=== PATIENT | male | born 1960 | race African-American/Black ===

== ENCOUNTER 2017-05-02 11:55 | Emergency (ER) | payer MEDICARE ==
[~2017-05-02] VITALS: Ht 195.6 cm; Wt 115.7 kg
[2017-05-02 12:40] LABS: Basophils # (auto) 0 uL; Basophils % (auto) 0.3 % (0.0-2.0); CONDITION Y; Eosinophils # (auto) 0.1 uL; Eosinophils % (auto) 1.4 % (0.0-7.0); Hematocrit 42.1 % (41.0-53.0); Lymphocytes # (auto) 2.1 uL; Lymphocytes % (auto) 24.2 % (10.0-50.0); Mean Corpuscular Hemoglobin 28.1 pg (28.0-32.0); Mean Corpuscular Hgb Conc. 33.2 g/dL (32.0-36.0); Mean Corpuscular Volume 84.8 fL (80.0-100.0); Mean Platelet Volume 8.1 fL (7.4-10.4); Monocytes # (auto) 0.7 uL; Monocytes % (auto) 8.2 % (0.0-12.0); Neutrophils # (auto) 5.7 uL; Neutrophils % (auto) 65.9 % (37.0-80.0); Platelet Count (auto) 300 10^3/uL (140-450); Red Cell Distribution Width 15.7 % (11.6-16.0); White Blood Cell 8.6 10^3/uL (4.4-10.8)
[2017-05-02 12:57] LABS: Albumin 4.2 g/dL (3.4-5.0); BUN/Creatinine Ratio 10.7; Bilirubin, Total 0.5 mg/dL (0.2-1.0); Calcium 9.3 mg/dL (8.5-10.1); Total Protein 8.1 g/dL (6.4-8.2)
[2017-05-02 14:00] VITALS: BP 152/95
[2017-05-03 10:07] LABS: PSA Free 1.45 ng/mL
== END 2017-05-02 15:19 | disposition home or self-care (01) ==
LOC: ER 11:55
DX: R30.0 Dysuria (principal); R35.0 Frequency of micturition; M19.90 Unspecified osteoarthritis, unspecified site
CPT/HCPCS: 36415; 80053; 84154; 85025

== ENCOUNTER 2018-07-24 21:20 | Emergency (ER) | payer MEDICARE ==
[~2018-07-24] VITALS: Ht 195.6 cm; Wt 99.8 kg
[2018-07-24 21:50] VITALS: BP 138/90
[2018-07-25] MEDS ORDERED: KETOROLAC TROMETH 60MG/2ML VIAL IM ONE (02:30)
[2018-07-25] MEDS ORDERED: DEXAMETHASONE SOD PHOS 10MG/1ML VIAL INJ IM ONE (02:30)
== END 2018-07-25 04:23 | disposition home or self-care (01) ==
LOC: ER 21:42
DX: M54.42 Lumbago with sciatica, left side (principal); M51.36 Other intervertebral disc degeneration, lumbar region
CPT/HCPCS: 72100; 96372; 99284; J1100; J1885

== ENCOUNTER 2018-10-28 17:05 | Emergency (ER) | payer MEDICARE ==
[~2018-10-28] VITALS: Ht 182.9 cm; Wt 77.1 kg
[2018-10-28] MEDS ORDERED: PROMETHAZINE HCL 25 MG/ML 1ML ONE (17:14)
[2018-10-28] MEDS ORDERED: HYDROmorphone HCL 2 MG/ML VL ONE (17:14)
[2018-10-28] MEDS ORDERED: LIDOCAINE 2% (LOCAL ANESTH.) PF 5ml SDV ONE (17:16)
[2018-10-28] MEDS ORDERED: PROMETHAZINE HCL 25 MG/ML 1ML IV ONE (17:30)
[2018-10-28] MEDS ORDERED: HYDROmorphone HCL 2 MG/ML VL IV ONE ×3 (17:30→19:00)
[2018-10-28] MEDS ORDERED: LIDOCAINE 2%HCL (LOCAL ANESTH.) INJ 10ml MDV IJ ONE (17:30)
[2018-10-28] MEDS ORDERED: CEFTRIAXONE SODIUM 2 GM in D5W 5% 50 ML IV ONE (17:45)
[2018-10-28] MEDS ORDERED: cefTRIAXone 1GM/50ML D5W 100 ML IV ONE (17:52)
[2018-10-28] MEDS ORDERED: TETANUS-DIPTH-ACEL PERTUSSIS 0.5ML SYRG IM ONE (18:00)
[2018-10-28] MEDS ORDERED: IOHEXOL 300 MG/ML 100ML BOTTLE IJ ONE (18:05)
[2018-10-28] MEDS ORDERED: SODIUM CHLORIDE 0.9% 1,000 ML IV ONE (18:30)
[2018-10-28] MEDS ORDERED: SODIUM CHLORIDE 0.9% 3,000 ML IV ONE (18:30)
[2018-10-28 18:46] LABS: Urine Bacteria NONE SEEN /hpf (None Seen); Urine Blood Negative /uL (Negative); Urine Specific Gravity 1.006 (1.001-1.035); Urine WBC <1 /hpf (0 - 3)
[2018-10-28] MEDS ORDERED: MORP15TA (18:52)
[2018-10-28] MEDS ORDERED: SERT-275 (18:52)
[2018-10-28] MEDS ORDERED: TRAZ50TA2 (18:52)
[2018-10-28] MEDS ORDERED: MORP-74 (18:52)
[2018-10-28] MEDS ORDERED: TRAZ100T2 (18:52)
[2018-10-28] MEDS ORDERED: GABA300C10 (18:52)
[2018-10-28] MEDS ORDERED: DICL50TA4 (18:52)
[2018-10-28] MEDS ORDERED: CAR350T (18:52)
[2018-10-28] MEDS ORDERED: AMOX500C2 (18:52)
[2018-10-28] MEDS ORDERED: TEMA30CA (18:52)
[2018-10-28 18:55] LABS: Hematocrit 35.1 % (41.0-53.0); Hemoglobin 10.7 g/dL (13.5-17.5); Mean Corpuscular Hemoglobin 27.9 pg (28.0-32.0); Mean Corpuscular Hgb Conc. 30.5 g/dL (32.0-36.0); Mean Corpuscular Volume 91.6 fL (80.0-100.0); Platelet Count (auto) 746 10^3/uL (140-450); Red Blood Cells 3.83 10^6/uL (4.5-5.90); Red Cell Distribution Width 19.2 % (11.8-14.3)
[2018-10-28 19:05] VITALS: BP 163/102
[2018-10-28 19:08] LABS: Albumin 3.7 g/dL (3.4-5.0); BUN/Creatinine Ratio 7.8; Calcium 8.4 mg/dL (8.5-10.1); Potassium 3.9 mmol/L (3.5-5.1)
[2018-10-28 19:10] LABS: Bilirubin, Total 0.4 mg/dL (0.2-1.0); Total Protein 7.9 g/dL (6.4-8.2)
[2018-10-28 19:35] LABS: White Blood Cell 288.2 10^3/uL (4.4-10.8)
[2018-10-28 19:36] LABS: Basophils % (manual) 0 (0.0-2.0)
[2018-10-28 21:13] LABS: Eosinophils % (manual) 2 (0-7); Lymphocytes % (manual) 2 (10.0-50.0); Metamyelocytes % 8; Monocytes % (manual) 4 (0-12); Myelocytes % 6
[2018-10-28 21:14] LABS: Promyelocytes % 1
[2018-10-28 22:02] LABS: Blast Cells 12
[2018-10-28 22:03] LABS: Band Neutrophils % (manual) 28; Reactive Lymphocytes 9
== END 2018-10-28 23:04 | disposition short-term general hospital (02) ==
LOC: EDBD 17:05 → ER 17:06
DX: S31.103A Unspecified open wound of abdominal wall, right lower quadrant without penetration into peritoneal cavity, initial encounter (principal); M19.90 Unspecified osteoarthritis, unspecified site; Z79.899 Other long term (current) drug therapy; W18.39XA Other fall on same level, initial encounter; Y93.89 Activity, other specified; Y99.8 Other external cause status; Y92.89 Other specified places as the place of occurrence of the external cause
CPT/HCPCS: 36415; 36430; 74177; 80053; 81001; 85007; 85027; 85060; 86850; 86870; 86900; 86901; 86920; 90471; 90715; 93005; 96374; 96375; 99291; J0696; J1170; J2001; J2550; J7030; P9016; Q9967; J7060

== ENCOUNTER 2018-11-23 18:40 | Inpatient (IN) | payer MEDICARE ==
[~2018-11-23] VITALS: Ht 193 cm; Wt 93.6 kg
[~2018-11-23 18:40] MED LIST: AMOX500C2; CAR350T; DICL50TA4; GABA300C10; MORP-74; MORP15TA; SERT-275; TEMA30CA; TRAZ100T2; TRAZ50TA2
[2018-11-23 19:25] LABS: Mean Corpuscular Hgb Conc. 32.3 g/dL (32.0-36.0)
[2018-11-23 19:28] LABS: Hematocrit 25.9 % (41.0-53.0); Hemoglobin 8.4 g/dL (13.5-17.5); Mean Corpuscular Volume 92.9 fL (80.0-100.0); Platelet Count (auto) 653 10^3/uL (140-450); Red Blood Cells 2.79 10^6/uL (4.5-5.90); Red Cell Distribution Width 18.4 % (11.8-14.3)
[2018-11-23 19:37] LABS: Albumin 3.3 g/dL (3.4-5.0); Anion Gap 5 (5-15); Blood Urea Nitrogen 18 mg/dL (7-18); Calcium 8.9 mg/dL (8.5-10.1); Carbon Dioxide 28 mmol/L (21-32); Chloride 107 mmol/L (98-107); Glucose 107 mg/dL (74-106); Potassium 4.5 mmol/L (3.5-5.1); Sodium 140 mmol/L (136-145)
[2018-11-23 19:39] LABS: White Blood Cell 213.2 10^3/uL (4.4-10.8)
[2018-11-23 19:40] LABS: Basophils % (manual) 0 (0.0-2.0)
[2018-11-23 19:42] LABS: Alanine Aminotransferase 19 U/L (16-61); Alkaline Phosphatase 86 U/L (45-117); Aspartate Aminotransferase 22 U/L (15-37); Bilirubin, Total 0.5 mg/dL (0.2-1.0); GFR African American > 60 mL/min; GFR Non-African American > 60 mL/min
[2018-11-23 20:10] LABS: BUN/Creatinine Ratio 14.2
[2018-11-23] MEDS ORDERED: MORPHINE SULFATE 4 MG/ML SYR/VIAL IV ONE (20:30)
[2018-11-23] MEDS ORDERED: SODIUM CHLORIDE 0.9% 1,000 ML IV ONE (20:30)
[2018-11-23] MEDS ORDERED: ONDANSETRON HCL 4 MG/2 ML VIAL IV ONE (20:30)
[2018-11-23 20:54] LABS: Band Neutrophils % (manual) 10; Lymphocytes % (manual) 2 (10.0-50.0); Monocytes % (manual) 2 (0-12)
[2018-11-23 20:55] LABS: Eosinophils % (manual) 2 (0-7); Metamyelocytes % 11; Promyelocytes % 2
[2018-11-23 20:56] LABS: Blast Cells 4; Myelocytes % 12; Reactive Lymphocytes 4
[2018-11-24] MEDS ORDERED: ONDANSETRON HCL 4 MG/2 ML VIAL IV PRN (01:00)
[2018-11-24] MEDS ORDERED: DOCUSATE SOD 100 MG CAP PO PRN (01:00)
--- NOTE | 2018-11-24 02:05 | NUR ---
MS admit from ER ANDRY MORELAND admitted to tele/MS after SBAR received admitted for Leukemia. Patient oriented to SERGIO CARREON RN primary RN, unit, room, bed, and unit policies regarding patient care and visiting hours. Patient weighed by bedscale and encouraged to call if they need something. All questions and concerns addressed, patient verbalized understanding. Note:
--- NOTE | 2018-11-24 02:27 | NUR ---
PATIENT COMPLANING OF 08/09 GENERALIZED PAIN REQUESTING PAIN MEDICATION. [facility] H[facility]PITALIST. AWAITING CALL BACK. Addendum: 11/24/18 at 0241 by SERGIO CARREON RN RN CALLED PHARMACY, WILL NOT ISSUE PATIENT ORDER FOR MORPHINE ER PO AND SOMA PO NEED ONE TIME ORDER FROM PROVIDER Addendum: 11/24/18 at 0243 by SERGIO CARREON RN RN INFORMED PATIENT PLAN OF CARE, AND THAT HE HAS ORDER FOR TYLENOL PATIENT REFUSES TO TAKE TYLENOL STATES "WHAT WILL TYLENOL DO, IT WONT RELIEVE MY PAIN"
[2018-11-24] MEDS ORDERED: MORPHINE SULF 30 mg ER tab PO ONE (03:00)
[2018-11-24 05:00] VITALS: BP 100/58
[2018-11-24] MEDS: PIPERACILLIN-TAZOB 3.375GM 100 ML IV SCH ×3 (05:31→21:19)
[2018-11-24 07:59] VITALS: BP 106/65
[2018-11-24] MEDS ORDERED: IOHEXOL 300 MG/ML 100ML BOTTLE IJ ONE (08:20)
[2018-11-24 08:42] VITALS: BP 106/65
[2018-11-24 09:29] LABS: INR 1.11 (0.9-1.15); Prothrombin Time 11.8 sec (9.27-12.13)
[2018-11-24] MEDS: CARISOPRODOL 350 MG TAB PO SCH ×2 (10:37→21:20)
[2018-11-24] MEDS: FAMOTIDINE 20 MG TAB PO SCH ×2 (10:37→21:21)
[2018-11-24] MEDS: MORPHINE SULF 30 mg ER tab PO SCH ×2 (10:37→21:20)
[2018-11-24] MEDS: HYDROXYUREA 500 MG CAP PO SCH ×2 (10:37→21:20)
[2018-11-24] MEDS ORDERED: fentaNYL CITRATE 100 MCG/2 ML VL IV ONE (11:08)
[2018-11-24] MEDS ORDERED: MIDAZOLAM HCL 1MG/1ML-2 ML VIAL IV ONE (11:09)
[2018-11-24] MEDS ORDERED: MIDAZOLAM HCL 1MG/1ML-2 ML VIAL ONE (11:17)
[2018-11-24] MEDS ORDERED: fentaNYL CITRATE 100 MCG/2 ML VL ONE (11:18)
[2018-11-24 11:39] VITALS: BP 105/65
--- NOTE | 2018-11-24 14:02 | NUR ---
Dr. Garcia paged regarding patient's condition, awaiting to call back.
--- NOTE | 2018-11-24 15:30 | NUR ---
Patient left unit to radiologist.
[2018-11-24 16:24] VITALS: BP 92/52
--- NOTE | 2018-11-24 16:45 | NUR ---
PARACENTESIS PT IN ULTRASOUND ROOM VIA W/C FROM 231 FOR US GUIDED PARACENTESIS BY DR JIMENEZ. PATIENT TOLERATED PROCEDURE VERY WEILL. ABOUT 3-4MLS OF BLOODY FLUID RETURNED AND SENT TO LAB. DRY STERILE GAUZE DRESSING AND CLEAR DRESSING APPLIED. PATIENT RETURNED TO ROOM VIA W/C AND REPORT GIVEN TO TERESO.
--- NOTE | 2018-11-24 17:00 | NUR ---
Patient back to the floor, no respiratory distress.
--- NOTE | 2018-11-24 18:00 | NUR ---
Colostomy bag changed.
[2018-11-24] MEDS: TEMAZEPAM 15 MG CAP PO PRN (21:19)
[2018-11-24 22:00] VITALS: BP 98/62
[2018-11-25 05:00] VITALS: BP 110/65
[2018-11-25] MEDS: PIPERACILLIN-TAZOB 3.375GM 100 ML IV SCH ×3 (05:03→22:58)
[2018-11-25 05:13] LABS: Hemoglobin 8.8 g/dL (13.5-17.5)
[2018-11-25 05:18] LABS: Hematocrit 27.9 % (41.0-53.0); Mean Corpuscular Hemoglobin 28.9 pg (28.0-32.0); Mean Corpuscular Hgb Conc. 31.6 g/dL (32.0-36.0); Mean Corpuscular Volume 91.4 fL (80.0-100.0); Platelet Count (auto) 546 10^3/uL (140-450); Red Blood Cells 3.06 10^6/uL (4.5-5.90)
[2018-11-25 05:27] LABS: Albumin 2.7 g/dL (3.4-5.0); BUN/Creatinine Ratio 16.8; Calcium 8.1 mg/dL (8.5-10.1); Potassium 4.3 mmol/L (3.5-5.1)
[2018-11-25 05:30] LABS: Bilirubin, Total 0.5 mg/dL (0.2-1.0); Total Protein 6.8 g/dL (6.4-8.2)
[2018-11-25 05:34] LABS: White Blood Cell 137.1 10^3/uL (4.4-10.8)
--- NOTE | 2018-11-25 07:30 | NUR ---
Opening Shift Note Assumed care of patient, awake and alert. No S/S of distress/SOB or pain. PT SITTING ON THE SIDE OF THE BED, EATING BREAKFAST. PT'S WOUND ON RIGHT LOWER QUADRANT IS ROUND AND HAVE VERY LITTLE DRAINAGE AT THIS TIME. A COLOSTOMY BAG IS ATTACHED ON THE WOUND SITE FOR DRAINAGE COLLECTION. PT Instructed on POC and to call for assist PRN, will continue to monitor for changes Q1hr and PRN.
[2018-11-25 08:00] VITALS: BP 112/67
--- NOTE | 2018-11-25 08:30 | NUR ---
CLERGY PAGED FOR PT, PER PT'S REQUEST.
[2018-11-25] MEDS: CARISOPRODOL 350 MG TAB PO SCH ×2 (10:18→22:57)
[2018-11-25] MEDS: FAMOTIDINE 20 MG TAB PO SCH ×2 (10:18→22:57)
[2018-11-25] MEDS: HYDROXYUREA 500 MG CAP PO SCH ×2 (10:19→22:57)
--- NOTE | 2018-11-25 10:20 | NUR ---
DR REY PAGED RE: SURGICAL CONSULT. WAITING FOR CALL BACK.
[2018-11-25] MEDS: MORPHINE SULF 30 mg ER tab PO SCH ×2 (10:22→22:57)
--- NOTE | 2018-11-25 11:50 | NUR ---
SPOKE TO DR REY. PER , WE HAVE TO WAIT FOR LAB RESULT OF THE ASPIRATED FLUID.
[2018-11-25 11:56] LABS: Band Neutrophils % (manual) 23; Basophils % (manual) 0 (0.0-2.0); Blast Cells 3; Eosinophils % (manual) 2 (0-7); Lymphocytes % (manual) 4 (10.0-50.0); Metamyelocytes % 16; Monocytes % (manual) 4 (0-12); Myelocytes % 17; Promyelocytes % 0; Reactive Lymphocytes 0
[2018-11-25 12:49] VITALS: BP_SYST 122; BP_SYST 99; BP_DIAS 62; BP_DIAS 73
--- NOTE | 2018-11-25 15:10 | NUR ---
RESEARCH SUPPORT SPECIALIST AT BEDSIDE.
[2018-11-25] MEDS: MORPHINE SULFATE 4 MG/ML SYR/VIAL IV PRN ×2 (15:33→22:02)
--- NOTE | 2018-11-25 16:00 | NUR ---
AUTHORIZATION TO OBTAIN MEDICAL RECORDS FROM [facility] SIGNED BY PATIENT AND FAXED TO [facility].
[2018-11-25 16:40] VITALS: BP 104/62
--- NOTE | 2018-11-25 17:33 | NUR ---
RECEIVED PT'S MEDICAL RECORD FROM [facility]. RECORD FILED IN PATIENT'S CHART.
--- NOTE | 2018-11-25 18:49 | NUR ---
CLOSING NOTES PT IN BED, WATCHING TV. VERBALIZED COMFORT. DENIES PAIN AT THIS TIME. NO DISTRESS NOTED. PT STATED FEELING MUCH BETTER AFTER TALKING TO THE [employer] OPERATOR TODAY.
--- NOTE | 2018-11-25 19:18 | NUR ---
Opening Shift Note Assumed care of patient, awake and alert x 4. No S/S of distress/SOB. Bed is in lowest position and locked. Call light within reach. Board updated. Instructed on POC and to call for assist PRN, will continue to monitor for changes Q1hr and PRN.
[2018-11-25] MEDS: ACETAMINOPHEN 325 MG TAB PO PRN (20:21)
[2018-11-25 22:00] VITALS: BP 112/68
[2018-11-25 22:37] LABS: Urine Bacteria FEW /hpf (None Seen); Urine Blood Negative /uL (Negative); Urine Specific Gravity 1.018 (1.001-1.035); Urine WBC 3 /hpf (0 - 3)
[2018-11-25] MEDS: TEMAZEPAM 15 MG CAP PO PRN (22:57)
[2018-11-26] MEDS: MORPHINE SULFATE 4 MG/ML SYR/VIAL IV PRN ×4 (03:37→21:34)
[2018-11-26 05:00] VITALS: BP 105/66
[2018-11-26] MEDS: PIPERACILLIN-TAZOB 3.375GM 100 ML IV SCH ×3 (05:05→22:40)
--- NOTE | 2018-11-26 07:35 | NUR ---
Patient in bed, awake, oriented x4. No acute distress noted.
--- NOTE | 2018-11-26 08:50 | NUR ---
Patient asked for Morphine shot. Explained to patient Morphine Sulf IVP not due at this time.
[2018-11-26] MEDS: HYDROXYUREA 500 MG CAP PO SCH ×3 (09:48→22:41)
[2018-11-26] MEDS: CARISOPRODOL 350 MG TAB PO SCH ×2 (09:48→22:40)
[2018-11-26] MEDS: FAMOTIDINE 20 MG TAB PO SCH ×2 (09:48→22:40)
--- NOTE | 2018-11-26 09:48 | NUR ---
Patient stated his pain level at 9/10 at this time. Morphine Sulf IVP given as ordered for pain.
[2018-11-26] MEDS: MORPHINE SULF 30 mg ER tab PO SCH ×2 (10:50→22:40)
--- NOTE | 2018-11-26 10:50 | NUR ---
Patient stated his pain level at 7/10 at this time. Oramorph pill as ordered for pain given.
--- NOTE | 2018-11-26 10:55 | NUR ---
Craig Crook at bedside.
--- NOTE | 2018-11-26 11:42 | NUR ---
Dr. Ricketts at bedside for follow up Oncology Consult.
--- NOTE | 2018-11-26 11:47 | NUR ---
Dr. Ricketts ordered Allopurinol 100 mg PO daily.
--- NOTE | 2018-11-26 14:15 | NUR ---
Patient asked for Morphine shot for pain. Explained to patient Morphine Sulf IVP not due at this time.
--- NOTE | 2018-11-26 15:47 | NUR ---
Patient stated his pain level at 8/10 at this time. Morphine Sulf IVP given as ordered.
--- NOTE | 2018-11-26 15:50 | NUR ---
About 850 ml of clear, romeo urine emptied from the urinal.
[2018-11-26] MEDS: ACETAMINOPHEN 325 MG TAB PO PRN (18:11)
--- NOTE | 2018-11-26 18:11 | NUR ---
Patient stated he has headache. Tylenol PO given for pain as ordered.
--- NOTE | 2018-11-26 20:46 | NUR ---
Patient is very concerned regarding his pain management when he goes home and wants MD to prescribe pain management prescriptions for him before going home. Will endorse to day shift RN.
[2018-11-26 21:30] VITALS: BP 114/70
--- NOTE | 2018-11-26 21:48 | NUR ---
Replaced Colostomy over right lower abdominal puncture wound. Patient tolerated well.
[2018-11-26] MEDS: TEMAZEPAM 15 MG CAP PO PRN (22:40)
[2018-11-27] MEDS: MORPHINE SULFATE 4 MG/ML SYR/VIAL IV PRN (03:46)
[2018-11-27 05:03] VITALS: BP 113/66
[2018-11-27] MEDS: PIPERACILLIN-TAZOB 3.375GM 100 ML IV SCH (06:27)
[2018-11-27] MEDS: HYDROXYUREA 500 MG CAP PO SCH (06:27)
[2018-11-27] MEDS: ACETAMINOPHEN 325 MG TAB PO PRN (06:41)
--- NOTE | 2018-11-27 06:59 | NUR ---
Notified of critical elevated WBC count of 108.7 by Winsome Wu. Patient has leukemia and has had an elevated WBC count since admission, trending down. Hospitalist and Dr. Ricketts to be notified during rounds. Will endorse to day shift RN.
[2018-11-27 07:11] LABS: Calcium 8.6 mg/dL (8.5-10.1); Potassium 4.3 mmol/L (3.5-5.1)
[2018-11-27 07:13] LABS: BUN/Creatinine Ratio 16.7
[2018-11-27 07:15] LABS: Bilirubin, Total 0.5 mg/dL (0.2-1.0); Total Protein 7.1 g/dL (6.4-8.2)
--- NOTE | 2018-11-27 07:40 | NUR ---
Opening patient in bed, asleep, bed in lowest position, call light within reach. No distress noted at this time. Will f/u with morning assessment.
[2018-11-27 09:00] VITALS: BP 115/73
[2018-11-27] MEDS ORDERED: ALLOPURINOL 100 MG TAB PO SCH (10:00)
[2018-11-27] MEDS: FAMOTIDINE 20 MG TAB PO SCH (10:25)
[2018-11-27] MEDS: CARISOPRODOL 350 MG TAB PO SCH (10:26)
[2018-11-27] MEDS: MORPHINE SULF 30 mg ER tab PO SCH (10:26)
--- NOTE | 2018-11-27 10:43 | NUR ---
MD LOUISA RODRÍGUEZ ROUNDING, TALKS ABOUT DISCHARGE, CONFIRMED WITH MD REY FOR CLEARANCE. WILL ADD PRESCRIPTIONS TO GO HOME WITH AND PATIENT IS TO F/U WITH SURGEON AT [facility] WITHIN 1 WEEK
[2018-11-27 12:18] VITALS: BP 115/73
[2018-11-27 12:30] VITALS: BP 121/76
--- NOTE | 2018-11-27 13:15 | NUR ---
Closing Discharge instructions given as ordered. Encourage to follow up with PMD as instructed. All questions and concerns addressed. Patient verbalized understanding. Medication reconciliation form completed and copy given to patient. IV removed with catheter intact, pressure dressing applied. Patient taken to vehicle with all personal belongings, accompanied by staff and family member. No distress noted at time of departure.
== END 2018-11-27 13:25 | disposition home or self-care (01) | DRG 371 ==
LOC: EDUNIT# 18:40 → EDBD 18:40 → ER 18:44 → EAST 11-24 01:25
PROVIDERS: ADMIT Nurse Practitioner; ATTEND Family Medicine
PROC: 0W9H3ZZ Drainage of Retroperitoneum, Percutaneous Approach (ICD-10-PCS; principal; 2018-11-25)
DX: K68.19 Other retroperitoneal abscess (principal); K66.1 Hemoperitoneum; K85.90 Acute pancreatitis without necrosis or infection, unspecified; R18.8 Other ascites; C92.10 Chronic myeloid leukemia, BCR/ABL-positive, not having achieved remission; R16.1 Splenomegaly, not elsewhere classified; M19.90 Unspecified osteoarthritis, unspecified site; E86.0 Dehydration; F32.9 Major depressive disorder, single episode, unspecified; I10 Essential (primary) hypertension; Z91.19 Patient's noncompliance with other medical treatment and regimen; Z93.3 Colostomy status; Y93.89 Activity, other specified; Y92.89 Other specified places as the place of occurrence of the external cause
CPT/HCPCS: 10022; 36415; 71260; 74176; 76705; 76942; 80053; 81001; 83605; 83690; 84484; 85007; 85025; 85027; 85610; 87040; 87070; 87075; 87081; 87205; 93005; 96374; 96375; G0378; J2250; J2405; J2543

== ENCOUNTER 2019-12-24 09:15 | Inpatient (IN) | payer MEDICARE ==
[2019-12-24] VITALS (9 sets, daily range): BP systolic 102–123; BP diastolic 65–73
[~2019-12-24] VITALS: Ht 195.6 cm; Wt 92.5 kg
[~2019-12-24 09:15] MED LIST changes: +ALL300T PO; -AMOX500C2; -CAR350T; -DICL50TA4; +FAM20T PO; +FURO1TAB31 PO; +HYD500C PO; -MORP-74; +MORP30TA5; -SERT-275; +SEVE800T PO; +SODI10PA PO; -TEMA30CA; -TRAZ100T2; -TRAZ50TA2; +VENL100T PO
[2019-12-24] MEDS ORDERED: SODIUM CHLORIDE 0.9% 1,000 ML IV ONE (11:27)
[2019-12-24 13:00] LABS: Hematocrit 17.8 % (41.0-53.0); Mean Corpuscular Hemoglobin 28.9 pg (28.0-32.0); Mean Corpuscular Hgb Conc. 33.1 g/dL (32.0-36.0); Mean Corpuscular Volume 87.4 fL (80.0-100.0); Platelet Count (auto) 154 10^3/uL (140-450); Red Blood Cells 2.03 10^6/uL (4.5-5.90); Red Cell Distribution Width 18.7 % (11.8-14.3); White Blood Cell 3.1 10^3/uL (4.4-10.8)
[2019-12-24 13:03] LABS: Hemoglobin 5.9 g/dL (13.5-17.5)
[2019-12-24 13:05] LABS: Band Neutrophils % (manual) 0; Basophils % (manual) 0 (0.0-2.0); Blast Cells 0; Metamyelocytes % 0; Myelocytes % 0; Promyelocytes % 0; Reactive Lymphocytes 0
[2019-12-24 13:08] LABS: Albumin 2.9 g/dL (3.4-5.0); Calcium 8.5 mg/dL (8.5-10.1); Potassium 4.9 mmol/L (3.5-5.1)
[2019-12-24 13:11] LABS: Bilirubin, Total 0.5 mg/dL (0.2-1.0); Total Protein 6.4 g/dL (6.4-8.2)
[2019-12-24] MEDS ORDERED: MORPHINE SULFATE 4 MG/ML SYR/VIAL IV PRN (14:00)
[2019-12-24] MEDS ORDERED: NITROGLYCERIN 0.4 MG SL TAB SL PRN (14:00)
[2019-12-24] MEDS ORDERED: MORPHINE SULF INJ 2 MG/ML SYRINGE 1ML IV PRN (14:00)
[2019-12-24] MEDS ORDERED: ONDANSETRON HCL 4 MG/2 ML VIAL IV PRN (14:00)
[2019-12-24 14:18] LABS: Eosinophils % (manual) 3 (0-7); Lymphocytes % (manual) 30 (10.0-50.0); Monocytes % (manual) 5 (0-12)
[2019-12-24 14:18] LABS: INR 1.06 (0.9-1.15); Partial Thromboplastin Time 23.6 sec (23.64-32.05)
[2019-12-24] MEDS: VENLAFAXINE HCL 25MG TABLET PO SCH (21:55)
[2019-12-24] MEDS ORDERED: PANTOPRAZOLE 40 MG TAB PO SCH (22:00)
[2019-12-24] MEDS: hydroxyUREA 500 MG CAP PO SCH (22:41)
[2019-12-24] MEDS: SEVELAMER 800 MG TAB PO SCH (22:41)
[2019-12-25 02:00] VITALS: BP 122/77
[2019-12-25 03:00] VITALS: BP 118/78
[2019-12-25 05:00] VITALS: BP 111/72
[2019-12-25] MEDS: SEVELAMER 800 MG TAB PO SCH ×3 (06:00→22:57)
[2019-12-25 07:02] LABS: Hemoglobin 8.3 g/dL (13.5-17.5)
[2019-12-25 07:04] LABS: Hematocrit 25.3 % (41.0-53.0); Mean Corpuscular Hgb Conc. 32.9 g/dL (32.0-36.0); Mean Corpuscular Volume 88.3 fL (80.0-100.0); Platelet Count (auto) 146 10^3/uL (140-450); Red Blood Cells 2.87 10^6/uL (4.5-5.90); Red Cell Distribution Width 17.9 % (11.8-14.3); White Blood Cell 3.3 10^3/uL (4.4-10.8)
[2019-12-25 07:18] LABS: Albumin 2.9 g/dL (3.4-5.0); Blast Cells 0; Calcium 8.9 mg/dL (8.5-10.1); Metamyelocytes % 0; Myelocytes % 0; Potassium 5.3 mmol/L (3.5-5.1); Promyelocytes % 0; Reactive Lymphocytes 0
[2019-12-25 07:22] LABS: BUN/Creatinine Ratio 30.1; Bilirubin, Total 0.9 mg/dL (0.2-1.0); Total Protein 6.7 g/dL (6.4-8.2)
[2019-12-25] MEDS ORDERED: SODIUM CHLORIDE LOCK 10 ML ONE (08:37)
[2019-12-25] MEDS ORDERED: LIDOCAINE VISCOUS 2% 15ML UD ONE (08:37)
[2019-12-25] MEDS ORDERED: diphenhdrAMINE HCL 50 MG/1 ML VL ONE (08:38)
[2019-12-25 09:00] VITALS: BP 103/64
[2019-12-25] MEDS ORDERED: FAMOTIDINE 20 MG TAB PO SCH (10:00)
[2019-12-25] MEDS: FUROSEMIDE 40 MG TAB PO SCH (10:00)
[2019-12-25] MEDS: GABAPENTIN 300 MG CAP PO SCH (10:00)
[2019-12-25] MEDS: ALLOPURINOL 100 MG TAB PO SCH (10:00)
[2019-12-25] MEDS: VENLAFAXINE HCL 25MG TABLET PO SCH ×2 (10:00→22:50)
[2019-12-25] MEDS ORDERED: hydroxyUREA 500 MG CAP PO SCH (11:00)
[2019-12-25 12:26] LABS: Band Neutrophils % (manual) 1; Basophils % (manual) 2 (0.0-2.0); Eosinophils % (manual) 3 (0-7); Lymphocytes % (manual) 24 (10.0-50.0); Monocytes % (manual) 2 (0-12)
[2019-12-25] MEDS: MIDAZOLAM HCL 5 MG/ML-1ML VIAL ONE ×2 (13:26→13:31)
[2019-12-25] MEDS: fentaNYL CITRATE 100 MCG/2 ML VL ONE ×2 (13:26→13:31)
[2019-12-25] MEDS: SODIUM ZIRCONIUM CYCL 10 GM PAK PO SCH (14:50)
[2019-12-25 17:00] VITALS: BP 103/61
[2019-12-25 22:00] VITALS: BP 116/66
[2019-12-26 05:00] VITALS: BP 109/60
[2019-12-26 06:19] LABS: Mean Corpuscular Hemoglobin 29.1 pg (28.0-32.0)
[2019-12-26 06:21] LABS: Hematocrit 23.7 % (41.0-53.0); Mean Corpuscular Hgb Conc. 33.7 g/dL (32.0-36.0); Mean Corpuscular Volume 86.2 fL (80.0-100.0); Platelet Count (auto) 157 10^3/uL (140-450); Red Blood Cells 2.75 10^6/uL (4.5-5.90); Red Cell Distribution Width 17.3 % (11.8-14.3); White Blood Cell 4.6 10^3/uL (4.4-10.8)
[2019-12-26 06:24] LABS: Band Neutrophils % (manual) 0; Basophils % (manual) 0 (0.0-2.0); Blast Cells 0; Eosinophils % (manual) 0 (0-7); Metamyelocytes % 0; Myelocytes % 0; Promyelocytes % 0; Reactive Lymphocytes 0
[2019-12-26 06:38] LABS: Calcium 8.7 mg/dL (8.5-10.1); Potassium 4.6 mmol/L (3.5-5.1)
[2019-12-26 06:40] LABS: BUN/Creatinine Ratio 24.8; Bilirubin, Total 0.7 mg/dL (0.2-1.0); Total Protein 6.9 g/dL (6.4-8.2)
[2019-12-26] MEDS: SEVELAMER 800 MG TAB PO SCH ×3 (06:43→21:21)
[2019-12-26 06:44] LABS: Ferritin 778.3 ng/mL (10-322)
[2019-12-26 06:47] LABS: % Iron Saturation 13.4 % (20-55)
[2019-12-26 06:56] LABS: Folate (Folic Acid) 10.49 ng/mL (5.38-24)
[2019-12-26 08:00] VITALS: BP 100/62
[2019-12-26 08:24] LABS: Lymphocytes % (manual) 13 (10.0-50.0); Monocytes % (manual) 5 (0-12)
[2019-12-26 08:41] VITALS: BP 100/62
[2019-12-26] MEDS ORDERED: hydroxyUREA 500 MG CAP PO SCH (10:00)
[2019-12-26] MEDS: VENLAFAXINE HCL 25MG TABLET PO SCH ×2 (10:07→21:21)
[2019-12-26] MEDS: ALLOPURINOL 100 MG TAB PO SCH (10:08)
[2019-12-26] MEDS: GABAPENTIN 300 MG CAP PO SCH (10:08)
[2019-12-26] MEDS: FUROSEMIDE 40 MG TAB PO SCH (10:08)
[2019-12-26] MEDS: SODIUM ZIRCONIUM CYCL 10 GM PAK PO SCH (10:56)
[2019-12-26 12:54] VITALS: BP 98/64
[2019-12-26 17:01] VITALS: BP 106/61
[2019-12-26] MEDS ORDERED: TEMAZEPAM 15 MG CAP PO PRN (18:00)
[2019-12-26] MEDS ORDERED: ACETAMINOPHEN 500 MG TAB PO PRN (18:00)
[2019-12-27] VITALS (7 sets, daily range): BP systolic 96–114; BP diastolic 54–63
[2019-12-27] MEDS: SEVELAMER 800 MG TAB PO SCH ×2 (06:08→14:27)
[2019-12-27 06:28] LABS: Hematocrit 21.9 % (41.0-53.0); Hemoglobin 7.3 g/dL (13.5-17.5); Mean Corpuscular Hemoglobin 29.2 pg (28.0-32.0); Mean Corpuscular Hgb Conc. 33.5 g/dL (32.0-36.0); Mean Corpuscular Volume 87.1 fL (80.0-100.0); Platelet Count (auto) 136 10^3/uL (140-450); Red Blood Cells 2.52 10^6/uL (4.5-5.90); Red Cell Distribution Width 17.7 % (11.8-14.3)
[2019-12-27 06:42] LABS: Band Neutrophils % (manual) 0; Basophils % (manual) 0 (0.0-2.0); Metamyelocytes % 0; Myelocytes % 0; Promyelocytes % 0
[2019-12-27 06:43] LABS: Blast Cells 0; Reactive Lymphocytes 0
[2019-12-27 06:50] LABS: Albumin 2.9 g/dL (3.4-5.0); Calcium 8.5 mg/dL (8.5-10.1); Potassium 4.2 mmol/L (3.5-5.1)
[2019-12-27 06:55] LABS: BUN/Creatinine Ratio 25.7; Bilirubin, Total 0.5 mg/dL (0.2-1.0); Total Protein 6.6 g/dL (6.4-8.2)
[2019-12-27 07:34] LABS: Eosinophils % (manual) 1 (0-7); Lymphocytes % (manual) 15 (10.0-50.0); Monocytes % (manual) 3 (0-12)
[2019-12-27] MEDS: FUROSEMIDE 40 MG TAB PO SCH (10:00)
[2019-12-27] MEDS: SODIUM ZIRCONIUM CYCL 10 GM PAK PO SCH (10:00)
[2019-12-27] MEDS: VENLAFAXINE HCL 25MG TABLET PO SCH (10:12)
[2019-12-27] MEDS: ALLOPURINOL 100 MG TAB PO SCH (10:13)
[2019-12-27] MEDS: GABAPENTIN 300 MG CAP PO SCH (10:13)
== END 2019-12-27 21:17 | DRG 378 ==
LOC: EDBD 09:15 → ER 09:15 → TELE 09:16 → TELE-CENTR 15:43
PROVIDERS: ADMIT Internal Medicine; ATTEND Internal Medicine
PROC: 30233N1 Transfusion of Nonautologous Red Blood Cells into Peripheral Vein, Percutaneous Approach (ICD-10-PCS; principal; 2019-12-24)
PROC: 0DJ08ZZ Inspection of Upper Intestinal Tract, Via Natural or Artificial Opening Endoscopic (ICD-10-PCS; 2019-12-25)
DX: K92.1 Melena (principal); D62 Acute posthemorrhagic anemia; C92.11 Chronic myeloid leukemia, BCR/ABL-positive, in remission; K44.9 Diaphragmatic hernia without obstruction or gangrene; K21.9 Gastro-esophageal reflux disease without esophagitis; I10 Essential (primary) hypertension; M19.90 Unspecified osteoarthritis, unspecified site; E04.1 Nontoxic single thyroid nodule; E79.0 Hyperuricemia without signs of inflammatory arthritis and tophaceous disease; F32.9 Major depressive disorder, single episode, unspecified; Z79.899 Other long term (current) drug therapy; Z91.19 Patient's noncompliance with other medical treatment and regimen
CPT/HCPCS: 36415; 43235; 71045; 80053; 82607; 82728; 82746; 83010; 83540; 83550; 83615; 84484; 84550; 85007; 85027; 85610; 85730; 86850; 86880; 86900; 86901; 86920; 87081; 96360; 96361; G0378; J2250

== ENCOUNTER 2020-01-01 16:48 | Inpatient (IN) | payer MEDICARE ==
[~2020-01-01] VITALS: Ht 195.6 cm; Wt 84.4 kg
[2020-01-01 18:02] LABS: Hematocrit 22.1 % (41.0-53.0); Hemoglobin 7.1 g/dL (13.5-17.5); Mean Corpuscular Hemoglobin 29.3 pg (28.0-32.0); Mean Corpuscular Hgb Conc. 32.3 g/dL (32.0-36.0); Mean Corpuscular Volume 90.7 fL (80.0-100.0); Platelet Count (auto) 178 10^3/uL (140-450); Red Blood Cells 2.44 10^6/uL (4.5-5.90); Red Cell Distribution Width 18.8 % (11.8-14.3); White Blood Cell 4.3 10^3/uL (4.4-10.8)
[2020-01-01 18:04] LABS: Band Neutrophils % (manual) 0; Basophils % (manual) 0 (0.0-2.0); Blast Cells 0; Metamyelocytes % 0; Reactive Lymphocytes 0
[2020-01-01] MEDS ORDERED: SODIUM CHLORIDE 0.9% 1,000 ML IV ONE (18:15)
[2020-01-01 18:22] LABS: Albumin 2.9 g/dL (3.4-5.0); Anion Gap 4 (5-15); Blood Urea Nitrogen 34 mg/dL (7-18); Calcium 8.2 mg/dL (8.5-10.1); Carbon Dioxide 28 mmol/L (21-32); Chloride 106 mmol/L (98-107); Glucose 77 mg/dL (74-106); Potassium 4.3 mmol/L (3.5-5.1); Sodium 138 mmol/L (136-145)
[2020-01-01 18:24] LABS: Alanine Aminotransferase 18 U/L (16-61); Aspartate Aminotransferase 12 U/L (15-37); BUN/Creatinine Ratio 23.8; GFR African American 65 mL/min; GFR Non-African American 53 mL/min
[2020-01-01 18:27] LABS: Alkaline Phosphatase 136 U/L (45-117); Bilirubin, Total 0.7 mg/dL (0.2-1.0); Total Protein 6.6 g/dL (6.4-8.2)
[2020-01-01 18:54] LABS: Eosinophils % (manual) 6 (0-7); Lymphocytes % (manual) 28 (10.0-50.0); Monocytes % (manual) 11 (0-12); Myelocytes % 2; Promyelocytes % 1
[2020-01-01 19:24] LABS: INR 1.09 (0.9-1.15); Partial Thromboplastin Time 26.3 sec (23.64-32.05)
[2020-01-01] MEDS ORDERED: hydrALAZINE HCL 20 MG/ML VL IV PRN (22:15)
[2020-01-01] MEDS ORDERED: NITROGLYCERIN 0.4 MG SL TAB SL PRN (22:15)
[2020-01-01] MEDS ORDERED: MORPHINE SULF INJ 2 MG/ML SYRINGE 1ML IV PRN ×2 (22:15)
[2020-01-01] MEDS ORDERED: ONDANSETRON HCL 4 MG/2 ML VIAL IV PRN (22:15)
[2020-01-01 23:03] VITALS: BP 108/61
[2020-01-01 23:18] VITALS: BP 104/56
[2020-01-01 23:45] VITALS: BP 111/61
--- NOTE | 2020-01-01 23:59 | NUR ---
Opening Shift Note Assumed care of patient. Pt awake, alert, and orientated x 4. No S/S of distress/SOB or pain. Pt is currently receiving a transfusion of PRBC. Bed is in lowest position with side rails up x 4. Bed brakes are locked and call light is with in reach. HOB is 30 degrees. Instructed on POC and to call for assist PRN, will continue to monitor for changes Q1hr and PRN.
[2020-01-02] VITALS (8 sets, daily range): BP systolic 99–112; BP diastolic 59–69
--- NOTE | 2020-01-02 01:11 | NUR ---
transfusion Transfusion complete. No s/s of distress/SOB nor pain. Vital signs as follows Temp: 98.1, BP: 107/66, Spo2: 100% on RA, RR:18, HR 72.
--- NOTE | 2020-01-02 01:21 | NUR ---
Telemetry admit from ER ANDRY MORELAND admitted to Telemetry unit after SBAR received. Patient oriented to YAHAIRA MALONE RN primary RN, unit, room, bed, and unit policies regarding patient care and visiting hours. Patient now on continuous telemetry monitoring, tele box # 61 and telemetry reading on arrival to unit is SR at 69. Pt was weighed by bedscale and encouraged to call if they need something. All questions and concerns addressed, patient verbalized understanding. Addendum: 01/02/20 at 0128 by YAHAIRA MALONE RN RN time of arrival and note [id number]
--- NOTE | 2020-01-02 01:21 | NUR ---
Med rec pt unable to recall medication taken, unable to obtain med rec at this moment.
[2020-01-02 02:27] LABS: Hematocrit 25.9 % (41.0-53.0); Hemoglobin 8.4 g/dL (13.5-17.5)
[2020-01-02 06:46] LABS: Hematocrit 28.1 % (41.0-53.0); Hemoglobin 9.2 g/dL (13.5-17.5); Mean Corpuscular Hemoglobin 29.1 pg (28.0-32.0); Mean Corpuscular Hgb Conc. 32.6 g/dL (32.0-36.0); Mean Corpuscular Volume 89.3 fL (80.0-100.0); Platelet Count (auto) 208 10^3/uL (140-450); Red Blood Cells 3.14 10^6/uL (4.5-5.90); Red Cell Distribution Width 19.1 % (11.8-14.3); White Blood Cell 5.8 10^3/uL (4.4-10.8)
[2020-01-02 06:55] LABS: Potassium 4.9 mmol/L (3.5-5.1)
[2020-01-02 07:04] LABS: Band Neutrophils % (manual) 0; Basophils % (manual) 0 (0.0-2.0); Blast Cells 0; Metamyelocytes % 0; Myelocytes % 0; Promyelocytes % 0; Reactive Lymphocytes 0
[2020-01-02 07:05] LABS: Albumin 3.3 g/dL (3.4-5.0); BUN/Creatinine Ratio 22.4; Bilirubin, Total 1.1 mg/dL (0.2-1.0); Calcium 8.4 mg/dL (8.5-10.1); Total Protein 6.7 g/dL (6.4-8.2)
--- NOTE | 2020-01-02 07:15 | NUR ---
Opening Shift Note Assumed care of patient, awake and alert. No S/S of distress/SOB or pain. Instructed on POC and to call for assist PRN, will continue to monitor for changes Q1hr and PRN. Bed is set in lowest locked position with side rails up x 2 for safety and call light is within reach.
[2020-01-02 08:18] LABS: Eosinophils % (manual) 2 (0-7); Lymphocytes % (manual) 11 (10.0-50.0); Monocytes % (manual) 14 (0-12)
--- NOTE | 2020-01-02 15:10 | NUR ---
assessment Patient is a 59 year old male who is alert and oriented. Prior to admission patient was at [facility]. Per patient he will return to [facility] to finish out his rehab before returning home. Patients PCP Dr Kauffman. Patient is now discharged back to . [facility] [id number] will satisfy order. I informed patient he has a right to speak to a mental health social worker regarding all care. I informed patient he has a right to participate in any and all discharge planning. Patient does not have a POA and advanced directive. I have offered patient information on POA and advanced directives. I informed the patient the advantages and benefits of having an Advanced Directive. Patient verbalized understanding and agreed to discharge plan. Addendum: 01/02/20 at 1511 by Torrie GIRON Amended: Links added.
--- NOTE | 2020-01-02 15:38 | NUR ---
ANDRY MORELAND states they want to leave the floor Against Medical Advice (AMA) to go outside. Patient encouraged to stay on floor. Patient advised of the risks and benefits of leaving AMA. Patient verbalized understanding and signed required AMA form.
--- NOTE | 2020-01-02 16:38 | NUR ---
D/C Planning Per SS consult for patient to return to [facility]. Faxed orders to [facility]. Per Paty with [facility] Ph:) patient will be going to room [address] Johnson. Transportation was arranged with [employer] [phone], and scheduled last picker time is for 20:00. Nurse Olivia was advised of dc plan.
--- NOTE | 2020-01-02 19:15 | NUR ---
opening note pt a&ox4. resp are even and nonlabored on room air. pt in semi fowlers position watching tv. bed in low locked position. call light is within reach. pt to be discharged this evening.
--- NOTE | 2020-01-02 19:30 | NUR ---
Care endorsed to NOC RN.
--- NOTE | 2020-01-02 20:40 | NUR ---
Lynn Martino arrived for transport to [facility]
--- NOTE | 2020-01-02 20:44 | NUR ---
tele box removed from pt. IV access d/c
--- NOTE | 2020-01-02 20:45 | NUR ---
pt en route to [facility]
[2020-01-03] MEDS ORDERED: hydroxyUREA 500 MG CAP PO SCH (10:00)
== END 2020-01-02 20:45 | DRG 842 ==
LOC: ER 16:48 → EDBD 16:48 → TELE 16:49 → TELE-WESTW 23:37
PROVIDERS: ADMIT Internal Medicine; ATTEND Internal Medicine
PROC: 30233N1 Transfusion of Nonautologous Red Blood Cells into Peripheral Vein, Percutaneous Approach (ICD-10-PCS; principal; 2020-01-01)
DX: C92.10 Chronic myeloid leukemia, BCR/ABL-positive, not having achieved remission (principal); I95.9 Hypotension, unspecified; I10 Essential (primary) hypertension; J45.909 Unspecified asthma, uncomplicated; K21.9 Gastro-esophageal reflux disease without esophagitis; M19.90 Unspecified osteoarthritis, unspecified site; D63.0 Anemia in neoplastic disease
CPT/HCPCS: 36415; 80053; 85007; 85014; 85018; 85027; 85610; 85730; 86850; 86900; 86901; 86920; 87081; 96360; G0378